=== PATIENT | male | born 1950 | race Caucasian/White ===

== ENCOUNTER 2025-01-08 17:26 | Emergency (ER) | payer OTHER, SELFPAY ==
[2025-01-08 17:30] VITALS: BP 116/74; PULSE 90; RESP 18; TEMP 36.5; O2SAT 93
[2025-01-08 18:08] VITALS: BP 112/67; PULSE 88; RESP 16; TEMP 36.7; O2SAT 94
[2025-01-08 18:09] VITALS: PULSE 99; RESP 22; O2SAT 94
[2025-01-08 18:13] VITALS: BMI 38.4
--- NOTE | 2025-01-08 18:15 | EKG_ITS ---
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
--- NOTE | 2025-01-08 18:24 | XR_ITS ---
Examination: CT brain head without contrast. 2-D sagittal coronal reconstructions Date and time of exam:January 08, 2025 1845 hrs. Indications: Onset dizziness today CTDI: vol (mGy):54.9 DLP: (mGycm):1163 Technique: Multiple CT axial sections of the brain have been obtained, 5 mm slice thickness. Contrast has not been administered. 2-D sagittal, coronal reconstructions have been obtained Low dose protocols were performed. One or more of the following dose reduction techniques were used; automated exposure control, adjustment of the mA and/or KV according to patient size, use of iterative reconstruction technique. Findings: No significant ventricular enlargement. 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 No mass effect or midline shift Basal cisterns are not remarkable. Fourth ventricle is midline. Cranial vault intact. Impression: Negative for acute hemorrhage, mass effect or midline shift As clinically warranted, brain MRI follow-up would best assess for acute ischemic change
--- NOTE | 2025-01-08 18:25 | PD.EDDIZZY ---
ED Dizzyness E/HPI General Chief Complaint: Dizziness Stated Complaint: DIZZINESS, WEAKNESS, NAUSEA Time Seen by Provider: 01/08/25 18:08 Arrival date/time: 01/08/25 17:26 RME / HPI RME / HPI Narrative: 74-year-old male patient with no significant medical history, came in for evaluation regarding sudden onset of dizziness and vertigo, onset of symptoms since earlier today while sitting, suddenly developed sudden onset of dizziness and vertigo, described as everything spinning, associated with diaphoresis. Patient did not develop any loss of consciousness. Denies any chest pain. Denies any other complaints. Patient also had 1 episode of vomiting. Denies any abdominal pain no medication was taken prior to arrival. Related Data Previous Rx's ?Medication ?Instructions ?Recorded meclizine 50 mg tablet 50 mg PO BID PRN dizziness #30 tabs 01/08/25 Allergies Allergy/AdvReac Type Severity Reaction Status Date / Time No Known Allergies Allergy Verified 03/13/24 12:10 Review of Systems Review of Systems Narrative Review of Systems: Review of system reviewed and within normal limits except mentioned in HPI ED Exam Narrative Physical exam: VITAL SIGNS: Reviewed. GENERAL APPEARANCE: Alert and interactive, follows commands, no acute distress, HEAD AND FACE: Non-traumatic. ENT: PERRL, pink conjunctivitis, eyelid no trauma, Mucous membrane moist. NECK: Supple, nontender, no nuchal rigidity. CHEST: No tenderness, no crepitus, no paradoxical movement, no retractions. LUNGS: Clear, well ventilated, symmetric, no rales, no wheezing, no ronchi, no stridor, good breath sounds bilaterally. HEART: Regular rate, regular rhythm, no murmur, no gallops. ABDOMEN: Soft, positive bowel sounds, nondistended, no guarding, nontender, no rebound, no masses, RECTAL: Deferred. GENITAL: Deferred. NEUROLOGICAL: Gross motor function intact sensory function intact, Appropriate for age. MUSCULOSKELETAL: low back nontender, full range of motion. EXTREMITIES: Nontender, full range of motion. SKIN: Color pink, dry, no rash, no lacerations, no abrasions, no contusions. LYMPHATICS: Deferred. Course Quality Measures none Orders Category Date Time Status EKG (ED ONLY) *Do not use* NOW Care 01/08/25 18:[address] head/brain wo con Stat Exams 01/08/25 18:24 Completed EKG (ED Only) Stat Exams 01/08/25 18:15 Draft CBC Stat Lab 01/08/25 18:35 Completed Comprehensive Metabolic Panel Stat Lab 01/08/25 18:35 Completed Partial Thromboplastin Time Stat Lab 01/08/25 18:35 Completed Troponin I Stat Lab 01/08/25 18:35 Completed Meclizine HCl [Antivert] Med 01/08/25 18:26 Discontinued 50 mg PO X1 ONE Vital Signs Vital signs: Vital Signs Temperature 97.7 F 01/08/25 17:30 Pulse Rate 90 01/08/25 17:30 Respiratory Rate 18 01/08/25 17:30 Blood Pressure 116/74 01/08/25 17:30 Pulse Oximetry (%) 93 L 01/08/25 17:30 Oxygen Delivery Method Nasal Cannula 01/08/25 17:30 Oxygen Flow Rate 6 01/08/25 17:30 Dizziness MDM Narrative MDM Narrative:: 74-year-old male patient with no significant medical history, came in for evaluation regarding sudden onset of dizziness and vertigo, onset of symptoms since earlier today while sitting, suddenly developed sudden onset of dizziness and vertigo, described as everything spinning, associated with diaphoresis. Patient did not develop any loss of consciousness. Denies any chest pain. Denies any other complaints. Patient also had 1 episode of vomiting. Denies any abdominal pain no medication was taken prior to arrival. EKG as interpreted by me showed sinus rhythm, ventricular to 90 bpm, no ST segment elevation depression noted. Patient's workup today including cardiac workup all came back normal. Patient received meclizine p.o. in the emergency room. On multiple reevaluation patient verbalized complete resolution of symptoms. No recurrence of dizziness even with patient was ambulatory. Patient data External records reviewed:: None and Other (specify) Clinical information provided by:: patient Social determinants that could affect healthcare access:: none Patient has the following chronic illnesses:: Hypertension How is presenting disease/condition affected by chronic disease/condition?: uneffected by Evaluation data The following diagnostics were reviewed and interpreted by me:: lab results, radiology exam(s) and EKG tracing(s) Lab and/or radiology exams considered but not ordered:: None Interpretation Summary: CT scan of the head came back unremarkable. Medications / Prescriptions Medications or Prescriptions considered but not ordered:: None Medication administrations:: Medication Administration History Discontinued Medications Meclizine HCl (Meclizine Hcl 25 Mg Tablet) 50 mg PO X1 ONE Stop: 01/08/25 18:27 Last Admin: 01/08/25 19:02 Dose: 50 mg Documented By: FERNANDO Meclizine Consultations Consultation(s) initiated? (list below): No Diagnosis Dizziness Differential Diagnosis: benign paroxysmal positional vertigo and other (Dizziness, vertigo) Most likely diagnosis given after review of the tests above:: Vertigo Admission Indicated Admission indicated?: not indicated Admission Request Was there a request for admission?: No Disposition Plan Disposition Plan: Discharge Discharge Attestation Discharge Attestation: The patient was given an opportunity to ask questions and understood the discharge instructions. Discharge instructions specifically effects, indications for sooner follow up or return to the emergency department, and the expected course of current diagnosis. Patient condition: Stable Discharge Plan Plan Patient Disposition: HOME (Self Care) Disposition Comment: Stable Prescriptions/Referrals Prescriptions/Med Rec: New meclizine 50 mg tablet 50 mg PO BID PRN (Reason: dizziness) Qty: 30 0RF Referrals: Irais Morales MD [Primary Care Provider] - In 1 week Problem List Clinical Impression: Vertigo Patient/Caregiver Discharge Instructions Discharge Activity: activity as tolerated Education Materials: Vertigo Medicine Tx Additional Instructions: Thank you for the opportunity for serving you today. You are stable for discharged . You are advised to: Follow-up with your PCP in 1 to 2 days Return to ED for worsening of symptoms Increase oral fluids Take medication as prescribed Print Language: [place] Stand Alone Forms: Delisa Award Info., Patient Portal Info Letter AMANDA/SEBASTIAN Supervising Physician AMANDA/SEBASTIAN Supervising Physician: MD Bobbi
[2025-01-08 18:44] LABS: Basophils # (Auto) 0.1 Thou/mm3 (0.0-0.2); Basophils % (Auto) 1 % (0-2.5); Eosinophils # (Auto) 0.1 Thou/mm3 (0.0-0.5); Eosinophils % (Auto) 1 % (0-10); Hematocrit 50.3 % (41.0-53.0); Hemoglobin 16.8 g/dL (13.5-16.0); Immature Granulocytes % (Auto) 0 % (0-0); Immature Granulocytes Auto 0.04 Thou/mm3 (0.00-0.00); Lymphocytes # (Auto) 1.8 Thou/mm3 (1.0-4.8); Lymphocytes % (Auto) 20 % (10-50); Mean Corpuscular HGB Conc 33.4 g/dl (31.0-37.0); Mean Corpuscular Hemoglobin 30.9 pg (25.0-35.0); Mean Corpuscular Volume 93 fL (80-100); Monocytes # (Auto) 0.8 Thou/mm3 (0.0-0.8); Monocytes % (Auto) 8 % (0-12); Neutrophils # (Auto) 6.3 Thou/mm3 (1.8-7.7); Neutrophils % (Auto) 69 % (37-80); Nucleated Red Blood Cell % 0 /100 WBC (0); Platelet Count 150 Thou/mm3 (140-440); RDW Standard Deviation 44.5 fL (35.1-43.9); Red Blood Count 5.44 Miln/mm3 (4.50-5.90); White Blood Count 9.1 Thou/mm3 (3.8-10.6)
[2025-01-08 19:02] LABS: Partial Thromboplastin Time 22.8 Seconds (22.0-36.0)
[2025-01-08] MEDS: MECLIZINE HCL 25 MG TABLET 50 MG PO (19:02)
[2025-01-08 19:09] LABS: Alanine Aminotransferase 28 U/L (10-49); Albumin, Serum 4.7 gm/dL (3.4-4.8); Albumin/Globulin Ratio 1.7 (1.2-2.2); Alkaline Phosphatase 87 U/L (46-116); Anion Gap 7 (7-16); Aspartate Amino Transferase 30 U/L (0-34); BUN/Creatinine Ratio 16 Ratio (12-20); Bilirubin,Total 0.7 mg/dL (0.3-1.2); Blood Urea Nitrogen 24 mg/dL (9-23); Calcium 9.1 mg/dL (8.3-10.6); Calcium (Corrected) 9.1 mg/dL (8.5-10.1); Carbon Dioxide 29.3 mMol/L (20.0-31.0); Chloride 107 mMol/L (98-107); Creatinine (Component) 1.5 mg/dL (0.6-1.3); Estimated Creatinine Clearance 53.9 mL/min (>60); Globulin 2.7 gm/dL (2.3-3.5); Glucose 119 mg/dL (74-106); Osmolality,Calculated 289 (275-295); Potassium 4.9 mMol/L (3.4-5.1); Sodium 143 mMol/L (136-145); Total Protein 7.4 gm/dL (5.7-8.2); Troponin I < 0.020 ng/mL (0.0-0.045); eGFR 48 See Note
[2025-01-08 19:12] VITALS: BP 129/69; PULSE 88; RESP 18; TEMP 36.6; O2SAT 93
[2025-01-08 20:03] VITALS: BP 140/68; PULSE 87; RESP 18
== END 2025-01-08 20:04 | disposition home or self-care (01) ==
PROVIDERS: Nurse Practitioner Family; Emergency Provider Emergency Medicine; PCP Family Medicine
DX: R42 Dizziness and giddiness (principal); R94.31 Abnormal electrocardiogram [ECG] [EKG]; I10 Essential (primary) hypertension
CPT/HCPCS: 36415; 70450; 80053; 84484; 85025; 85730; 93005; 99284; A9270

== ENCOUNTER → 2025-08-23 | Outpatient (CLI) | payer OTHER, SELFPAY ==
--- NOTE | 2025-08-23 16:15 | XR_ITS ---
Exam: MRI knee without contrast, left Date and time of exam: August 23, 2025, 1408 hours, comparison July 13, 2022 INDICATION: Left knee pain 10 years stiffness instability Technique: Multiple axial, coronal, and sagittal sections on the knee have been obtained. T2-Weighted sagittal, fat-suppressed images, TR 3,500, TE 62, T2 weighted coronal fat-saturated images, TR 3,500, TE 62 Proton density sagittal sections, TR 1800, TE 31. T-1 weighted coronal images, TR 524, TE 13.0 Findings: Medial meniscus anterior horn truncation inner margin. Medial meniscus, body truncation inner margin replaced by isointense signal including a Bleich linear tear. Posterior horn medial meniscus truncation inner margin, oblique linear tear communicating inferior articular surface. Lateral meniscus anterior horn small oblique linear tears Lateral meniscus, body is intact Posterior horn lateral meniscus is intact Anterior cruciate ligament absent Posterior cruciate ligament moderate sprain Knee effusion is moderate. Quadriceps and patellar tendons appear intact. There is no evidence of tendinosis. Inflammatory change or fracture of Hoffa's fat pad is not seen. Medial patellar facet demonstrates severe thinning. Lateral patellar facet cartilage demonstrates moderate thinning. Trochlear cartilage demonstrates severe thinning. Marrow signal adequate. Medial collateral ligament appears intact. No meniscocapsular separation is seen. Illiotibial band and fibular collateral ligament are intact. Biceps femoris tendons appear intact. Medial femoral condylar articular cartilage demonstrates severe thinning. Lateral femoral condylar articular cartilage demonstrates moderate thinning. Tibial plateau cartilage demonstrates severe medial thinning. Impression: Medial and lateral meniscus tears as above Absent anterior cruciate ligament Moderate sprain posterior cruciate ligament Severe thinning cartilage medial joint space
--- NOTE | 2025-08-23 16:53 | XR_ITS ---
Examination: Knee, left, 3 views Technique: Knee AP, lateral, oblique 3 views Date and time of exam: August 23, 2025, 1710 hours, comparison March 13, 2024 INDICATIONS: Knee pain several years. FINDINGS: Moderate to advanced tricompartment osteoarthritis Severe narrowing medial joint space Small knee effusion Moderate osteopenia No fracture IMPRESSION: Moderate to advanced tricompartment osteoarthritis
== END | disposition home or self-care (01) ==
LOC: SMRI 15:47
PROVIDERS: PCP Family Medicine; Referring Provider Family Medicine; Visit Provider Family Medicine
DX: S83.282A Other tear of lateral meniscus, current injury, left knee, initial encounter (principal); S83.242A Other tear of medial meniscus, current injury, left knee, initial encounter; S83.522A Sprain of posterior cruciate ligament of left knee, initial encounter; X58.XXXA Exposure to other specified factors, initial encounter; M25.862 Other specified joint disorders, left knee; M17.12 Unilateral primary osteoarthritis, left knee
CPT/HCPCS: 73562; 73721